=== PATIENT | male | born 2000 | race African-American/Black ===

== ENCOUNTER 2019-11-19 23:34 | Emergency (ER) | payer MEDICAID ==
[~2019-11-19] VITALS: Ht 190.5 cm; Wt 110.0 kg
[2019-11-19 23:50] VITALS: BP 132/71
[2019-11-20] MEDS ORDERED: IPRATROPIUM BROMIDE (0.02%) 0.5MG/2.5ML NEB HHN STA (00:04)
[2019-11-20] MEDS ORDERED: ALBUTEROL (0.083%) 2.5MG/3ML NEB HHN STA (00:04)
== END 2019-11-20 00:55 | disposition home or self-care (01) ==
LOC: ER 23:34
DX: J45.909 Unspecified asthma, uncomplicated (principal); F12.10 Cannabis abuse, uncomplicated
CPT/HCPCS: 94640; 99283; Z7610

== ENCOUNTER 2020-01-07 22:18 | Emergency (ER) | payer MEDICAID ==
[~2020-01-07] VITALS: Ht 193 cm; Wt 106.0 kg
[2020-01-07 22:41] VITALS: BP 119/69
[2020-01-07] MEDS ORDERED: IPRATROPIUM BROMIDE (0.02%) 0.5MG/2.5ML NEB HHN STA (23:05)
[2020-01-07] MEDS ORDERED: PREDNISONE 20MG TABLET PO STA (23:05)
[2020-01-07] MEDS ORDERED: ALBUTEROL (0.083%) 2.5MG/3ML NEB HHN STA (23:05)
== END 2020-01-07 23:42 | disposition home or self-care (01) ==
LOC: ER 22:18
DX: J45.901 Unspecified asthma with (acute) exacerbation (principal); F12.10 Cannabis abuse, uncomplicated; F17.210 Nicotine dependence, cigarettes, uncomplicated
CPT/HCPCS: 99283; J7512